=== PATIENT | female | born 1980 | race Two or more races ===

== ENCOUNTER 2025-07-19 16:24 | Emergency (ER) | payer BC, SELFPAY ==
[2025-07-19 16:36] VITALS: BP 106/78; PULSE 76; RESP 18; TEMP 37.1; O2SAT 100
--- NOTE | 2025-07-19 16:43 | XR_ITS ---
Examination: CT abdomen and pelvis without contrast. Coronal 3-D reconstructions. Sagittal 2-D reconstructions. Date and time of exam: July 19, 2025, 1726 hours INDICATIONS: Abdominal pain with generalized nausea vomiting and diarrhea today CTDI: vol (mGy): 8.60 DLP: (mGycm): 478 Technique: Axial images of the abdomen have been obtained, 3 mm slice thickness Intravenous contrast material has not been administered. Low dose protocols were performed. One or more of the following dose reduction techniques were used; automated exposure control, adjustment of the mA and/or KV according to patient size, use of iterative reconstruction technique. Findings: No focal liver or splenic lesions Gallstones Gallbladder wall does not appear thickened No pancreatic or adrenal mass No renal or ureteral calculi, no hydronephrosis Multiple small lymph nodes in the mesentery, for instance axial image 114, subcentimeter 7 mm fat-containing umbilical hernia Normal appendix No bowel obstruction No diverticulitis Anteverted uterus Contracted urinary bladder, wall thickening up to 5 mm Mild osteopenia IMPRESSION: Cholelithiasis, negative for cholecystitis No renal or ureteral calculi, no hydronephrosis Multiple small lymph nodes in the mesentery which may relate to inflammation in the mesentery, clinical correlation advised and recommend 3-month follow-up CT scan abdomen/pelvis to document stability of this lymphadenopathy Normal appendix Mild thickening of the urinary bladder wall consider cystitis
--- NOTE | 2025-07-19 16:44 | PD.EDRME ---
Rapid Medical Screening Exam RME Arrival date/time: 07/19/25 16:24 45-year-old female presents to the Emergency Department today for complaint of abdominal pain Chief Complaint: Nausea/Vomiting/Diarrhea Time Seen by Provider: 07/19/25 16:36 Vital signs: Vital Signs Temperature 98.8 F 07/19/25 16:36 Pulse Rate 76 07/19/25 16:36 Respiratory Rate 18 07/19/25 16:36 Blood Pressure 106/78 07/19/25 16:36 Pulse Oximetry (%) 100 07/19/25 16:36 Oxygen Delivery Method Room Air 07/19/25 16:36
[2025-07-19 17:20] LABS: Collection Type, Urine Clean Catch
[2025-07-19 17:27] LABS: Basophils # (Auto) 0.1 Thou/mm3 (0.0-0.2); Basophils % (Auto) 1 % (0-2.5); Eosinophils # (Auto) 0.3 Thou/mm3 (0.0-0.5); Eosinophils % (Auto) 7 % (0-10); Hematocrit 38.6 % (36.0-46.0); Hemoglobin 12.5 g/dL (12.0-16.0); Immature Granulocytes Auto 0.01 Thou/mm3 (0.00-0.00); Lymphocytes # (Auto) 1.7 Thou/mm3 (1.0-4.8); Lymphocytes % (Auto) 35 % (10-50); Mean Corpuscular HGB Conc 32.4 g/dl (31.0-37.0); Mean Corpuscular Hemoglobin 33.4 pg (25.0-35.0); Mean Corpuscular Volume 103 fL (80-100); Monocytes # (Auto) 0.4 Thou/mm3 (0.0-0.8); Monocytes % (Auto) 9 % (0-12); Neutrophils # (Auto) 2.3 Thou/mm3 (1.8-7.7); Neutrophils % (Auto) 48 % (37-80); Nucleated Red Blood Cell # 0.00 Thou/mm3 (0.00-0.00); Nucleated Red Blood Cell % 0 /100 WBC (0); Platelet Count 283 Thou/mm3 (140-440); RDW Standard Deviation 43.0 fL (36.4-46.3); Red Blood Count 3.74 Miln/mm3 (4.00-5.20); White Blood Count 4.8 Thou/mm3 (3.6-11.0)
[2025-07-19 17:41] LABS: Alanine Aminotransferase 16 U/L (10-49); Albumin, Serum 4.3 gm/dL (3.5-5.0); Albumin/Globulin Ratio 1.5 (1.2-2.2); Alkaline Phosphatase 86 U/L (46-116); Anion Gap 9 (7-16); Aspartate Amino Transferase 22 U/L (0-34); BUN/Creatinine Ratio 11 Ratio (12-20); Bilirubin,Total 0.5 mg/dL (0.3-1.2); Blood Urea Nitrogen 10 mg/dL (9-23); Calcium 8.7 mg/dL (8.3-10.6); Calcium (Corrected) 8.7 mg/dL (8.5-10.1); Carbon Dioxide 28.1 mMol/L (20.0-31.0); Chloride 105 mMol/L (98-107); Creatinine (Component) 0.9 mg/dL (0.6-1.3); Globulin 2.8 gm/dL (2.3-3.5); Glucose 107 mg/dL (74-106); Lipase 36 U/L (12-53); Osmolality,Calculated 282 (275-295); Potassium 3.6 mMol/L (3.4-5.1); Sodium 142 mMol/L (136-145); Total Protein 7.1 gm/dL (5.7-8.2); eGFR > 60 See Note
[2025-07-19 17:52] LABS: Bacteria,Urine Rare; Bilirubin,Urine Negative (Negative); Blood,Urine Negative (Negative); Color,Urine Yellow (Lt Yel-Yel); Culture Indicated,Urine Not Indicated; Glucose, Urine Negative (Negative); Ketones,Urine Negative (Negative); Leukocyte Esterase,Urine Positive (Negative); Nitrite,Urine Negative (Negative); PH,Urine 6.0 (5.0-7.0); Protein,Urine Trace (Neg - Trace); RBC,Urine 5 /hpf (0-3); Specific Gravity,Urine 1.024 (1.001-1.035); Squamous Epithelial Cell,Urine 14 /hpf (0-5); Urobilinogen,Urine 8.0 mg/dL (0.0-1.0); WBC,Urine 10 /hpf (0-5)
[2025-07-19 17:56] LABS: Clarity,Urine Hazy (Clear/Hazy)
--- NOTE | 2025-07-19 18:16 | EDNOTE_ITS ---
Nausea/Vomit./Diarrhea-RME/HPI General Chief complaint: Nausea/Vomiting/Diarrhea Stated complaint: Vomiting, diarrhea X 3 days Time Seen by Provider: 07/19/25 16:36 Arrival date/time: 07/19/25 16:24 RME / HPI RME / HPI Narrative: 07/19/25 16:24 45-year-old female presents to the Emergency Department today for complaint of abdominal pain See [facility] for Dr. Siu's HPI Documentation. Related Data Previous Rx's ?Medication ?Instructions ?Recorded acetaminophen 300 mg-codeine 30 mg 2 tab PO Q8H PRN pa in #20 tabs 07/19/25 tablet ondansetron 4 mg disintegrating 4 mg PO TID PRN nausea and 07/19/25 tablet vomiting 30 days #10 tabs Allergies Allergy/AdvReac Type Severity Reaction Status Date / Time No Known Drug Allergies Allergy Verified 07/19/25 16:30 Review of Systems Review of Systems Systems Reviewed: All systems reviewed, normal except as documented Past Medical History Social History SMOKING STATUS: Former smoker ED Exam Narrative Physical exam: See [facility] for Dr. Siu's Physical Exam Documentation. Course Quality Measures none Orders Category Date Time Status CT abdomen pelvis wo con Stat Exams 07/19/25 16:43 Completed CBC Stat Lab 07/19/25 17:07 Completed Comprehensive Metabolic Panel Stat Lab 07/19/25 17:07 Completed Lipase Stat Lab 07/19/25 17:07 Completed UA, C/S IF [Urinalysis, C/S if Indicated] Stat Lab 07/19/25 17:14 Completed ACETAMINOPHEN w/COD 300-30 [Tylenol w/Cod #3] Med 07/19/25 18:59 Discontinued 2 tab PO X1 ONE Ondansetron Odt [Zofran Odt] Med 07/19/25 18:59 Discontinued 4 mg PO X1 ONE Vital Signs Vital signs: Vital Signs Temperature 98.8 F 07/19/25 16:36 Pulse Rate 76 07/19/25 16:36 Respiratory Rate 18 07/19/25 16:36 Blood Pressure 106/78 07/19/25 16:36 Pulse Oximetry (%) 100 07/19/25 16:36 Oxygen Delivery Method Room Air 07/19/25 16:36 Nausea/Vomiting/Diarrhea MDM Narrative MDM Narrative:: This section includes all my notes and documentations, including HPI, PE, and ED course. Bola Siu MD HPI: 45 y/o female presents with vomiting, diarrhea, and lower abdominal pain x 3 days. No other complaints. ROS: All negative except as documented in HPI. Physical Exam: General: Alert and oriented. No acute distress when remaining still. Eyes: Conjunctivae and lids clear. ENT: No nasal congestion. Neck: Supple. Heart: RRR. Lungs: No respiratory distress. Good air movement. No rhonchi, wheezing, rales. Abdomen: Soft and nontender. Normal bowel sounds. No distension. No rebound or guarding. Back: No CVA tenderness. Skin: Warm and dry. Neuro: Alert and oriented X 3. I reviewed all diagnostic test results: My review of the Abdomen/Pelvis CT report is NAD. Blood tests and urine tests unremarkable. At this point, diagnoses include: Stomach flu Treatment here included: Tylenol #3 X 2 Zofran ODT 4 mg She felt much better. Recommended supportive care. Based on my best medical judgment, made decision no further evaluation or treatment indicated at this time. Patient understands and agrees to the discharge instructions customized and printed, see below. Discharge Instructions from Dr. Siu: 1. After evaluation, you have stomach flu.? See attached handout on gastroenteritis. 2. This is caused by virus germs.? And we do not have good medications to kill the virus germs.? But your immune system will fight it off. 3. Your job is to stay hydrated.? Zofran for nausea/vomiting.? Increase oral fluid and maintain clear urine.? If dark or yellow, increase oral fluid. Tylenol with codeine for severe pain. 4. Do not take any medications to stop your diarrhea.? But try to replenish the fluid and electrolytes you are losing. 5. Some good choices are water (but not only water because it will cause electrolyte abnormalities), sports drinks like Gatorade (with less sugar content), coconut water, chicken stock, and other fluid with electrolytes (like Pedialyte). 6. See your private doctor next week if not completely better.? 7. Seek immediate medical care with worsening or with any concerns. Bola Siu MD Patient data External records reviewed:: [facility] previous records (No prior ED records available for review) Clinical information provided by:: patient Social determinants that could affect healthcare access:: none Patient has the following chronic illnesses:: None reported How is presenting disease/condition affected by chronic disease/condition?: no chronic disease Evaluation data The following diagnostics were reviewed and interpreted by me:: lab results and radiology exam(s) Lab and/or radiology exams considered but not ordered:: None Interpretation Summary: I reviewed all diagnostic test results: My review of the Abdomen/Pelvis CT report is NAD. Blood tests and urine tests unremarkable. Medications / Prescriptions Medications / Prescriptions considered but not ordered:: None Medication administrations:: Medication Administration History Discontinued Medications Acetaminophen/Codeine Phosphate (Acetaminophen W/Cod 300-30 Tablet) 2 tab PO X1 ONE Stop: 07/19/25 19:00 Last Admin: 07/19/25 19:07 Dose: 2 tab Documented By: ABI Ondansetron HCl (Ondansetron Odt 4 Mg Tabrap) 4 mg PO X1 ONE; Protocol Stop: 07/19/25 19:00 Last Admin: 07/19/25 19:08 Dose: 4 mg Documented By: ABI Treatment here included: Tylenol #3 X 2 Zofran ODT 4 mg Consultations Consultation(s) initiated? (list below): No Diagnosis Nausea Differential Diagnosis: food poisoning, gastroenteritis, clostridium difficile infection and dehydration Most likely diagnosis given after review of the tests above:: Stomach flu Admission Indicated Admission indicated?: not indicated Explain why admission is indicated or not indicated:: With significant improvement and no condition needing emergent intervention, there was no indication for admission. Admission Request Was there a request for admission?: No Disposition Plan Disposition Plan: Discharge Discharge Attestation Discharge Attestation: The patient and all family members were given an opportunity to ask questions and understood the discharge instructions. Discharge instructions specifically effects, indications for sooner follow up or return to the emergency department, and the expected course of current diagnosis. Patient condition: Stable Discharge Plan Plan Patient Disposition: HOME (Self Care) Prescriptions/Referrals Prescriptions/Med Rec: New acetaminophen-codeine 300-30 mg tablet 2 tab PO Q8H MDD 6 PRN (Reason: pain) Qty: 20 0RF ondansetron 4 mg tablet,disintegrating 4 mg PO TID PRN (Reason: nausea and vomiting) 30 Days Qty: 10 0RF Referrals: No Primary/Family,Physician [Primary Care Provider] - In 1 week Problem List Clinical Impression: Stomach flu Patient/Caregiver Discharge Instructions Discharge Activity: activity as tolerated Education Materials: ED Gastroenteritis, Viral (Adult) Additional Instructions: Discharge Instructions from Dr. Siu: 1. After evaluation, you have stomach flu.? See attached handout on gastroenteritis. 2. This is caused by virus germs.? And we do not have good medications to kill the virus germs.? But your immune system will fight it off. 3. Your job is to stay hydrated.? Zofran for nausea/vomiting.? Increase oral fluid and maintain clear urine.? If dark or yellow, increase oral fluid. Tylenol with codeine for severe pain. 4. Do not take any medications to stop your diarrhea.? But try to replenish the fluid and electrolytes you are losing. 5. Some good choices are water (but not only water because it will cause electrolyte abnormalities), sports drinks like Gatorade (with less sugar content), coconut water, chicken stock, and other fluid with electrolytes (like Pedialyte). 6. See your private doctor next week if not completely better.? 7. Seek immediate medical care with worsening or with any concerns. Instrucciones de melissa del Dr. Siu: 1. Despu?s de la evaluaci?n, tiene gastroenteritis. Consulte el folleto adjunto sobre gastroenteritis. 2. [place] es causado por virus. No contamos con medicamentos eficaces para eliminarlos, joaquim cohen sistema inmunitario lo combatir?. 3. Cohen deber es mantenerse hidratado. Zofran para las n?useas y los v?mitos. Aumente la ingesta de l?quidos y mantenga la orina praveena. Si la orina es oscura o amarilla, aumente la ingesta de l?quidos. Tylenol con code?na para el dolor intenso. 4. No tome stephen?n medicamento para detener la diarrea. Intente reponer los l?quidos y electrolitos que est? perdiendo. 5. Algunas buenas opciones son el agua (joaquim no solo agua, ya que puede causar anomal?as electrol?hortencia), bebidas deportivas jesus Gatorade (con menos contenido de az?car), agua de thor, caldo de jacob y otros l?quidos con electrolitos (jesus Pedialyte). 6. Consulte a cohen m?dico la pr?xima semana si no mejora por completo. 7. Busque atenci?n m?dica inmediata si presenta empeoramiento o cualquier inquietud. Print Language: Kosovan Stand Alone Forms: Lynda Award Info., Patient Portal Info Letter
[2025-07-19] MEDS: ACETAMINOPHEN w/COD 300-30 TABLET 2 TAB PO (19:07)
[2025-07-19] MEDS: ONDANSETRON ODT 4 MG TABRAP PO (19:08)
[2025-07-19 19:17] VITALS: BP 124/78; PULSE 78
== END 2025-07-19 19:18 | disposition home or self-care (01) ==
PROVIDERS: Nurse Practitioner Primary Care; Emergency Provider Emergency Medicine
DX: A08.4 Viral intestinal infection, unspecified (principal)
CPT/HCPCS: 36415; 74176; 80053; 81001; 83690; 85025; 99283; Q0162; A9270